=== PATIENT | female | born 1945 | race Caucasian/White ===

== ENCOUNTER 2016-10-28 10:01 | Emergency (ER) | payer MEDICARE, MEDICAID | END 2016-10-28 12:30 | disposition home or self-care (01) | LOC: D.ER 10:01 | DX: S80.212A Abrasion, left knee, initial encounter (principal); W01.0XXA Fall on same level from slipping, tripping and stumbling without subsequent striking against object, initial encounter; Y93.89 Activity, other specified; Y92.015 Private garage of single-family (private) house as the place of occurrence of the external cause; S79.912A Unspecified injury of left hip, initial encounter; S09.90XA Unspecified injury of head, initial encounter ==

== ENCOUNTER 2017-05-17 15:09 | Emergency (ER) | payer MEDICARE, MEDICAID | END 2017-05-17 18:00 | disposition home or self-care (01) | LOC: D.ER 15:09 | DX: M79.675 Pain in left toe(s) (principal) ==

== ENCOUNTER 2017-09-16 09:21 | Inpatient (IN) | payer MEDICARE, MEDICAID ==
[2017-09-16] VITALS (8 sets, daily range): BP systolic 101–124; BP diastolic 49–73
[~2017-09-16] VITALS: Ht 162.6 cm; Wt 87.0 kg
--- NOTE | ~2017-09-16 | CN ---
PATIENT NAME:WANDY HECTOR MEDICAL RECORD: [id number] : 43 LOCATION:[facility] ADMIT DATE: 09/16/17 ACCOUNT: [id number] CONSULTING PHYSICIAN: NONI NINO MD REFERRING PHYSICIAN: HILDA BARRY MD DATE OF CONSULTATION: 09/19/2017 ADMITTING DIAGNOSES: 1. Chest pain. 2. Status post fall, hip fracture. 3. Smoking history. HISTORY OF PRESENT ILLNESS: Mrs. Hector has chest pain, but this is positional and associated with her fall. She had a hip fracture. She has no previous cardiac history. Troponin is normal. EKG is with no changes. PHYSICAL EXAMINATION: GENERAL APPEARANCE: Well-nourished, well-developed, appears stated age. Level of distress, comfortable. PSYCHIATRIC: Mental status, alert, normal affect. Orientation, oriented to time, place and person. EYES: Lids and conjunctiva, noninjected. No discharge, no pallor. ENT: Lips, teeth, gums, normal dentition. Oropharynx, no cyanosis, no pallor. NECK: Carotid arteries, bilateral normal upstroke, no bruits, no thrills. JUGULAR VEINS: No jugular venous pressure or distention. CERVICAL LYMPH NODES: Nontender, nonenlarged. THYROID: Not enlarged. Nontender. No nodules. LUNGS: Respiratory effort, unlabored. CHEST: Normal curvature. No thoracic deformity. No chest wall tenderness. Percussion, resonant. Auscultation, clear. No wheezes, no rales, no rhonchi. CARDIOVASCULAR: Precordial exam, nondisplaced. No heaves or pericardial thrills. Rate and rhythm, regular. Heart sounds, normal S1, normal S2. No S3, no gallop, no rub. Systolic murmur, not heard. Diastolic murmur, not heard. EXTREMITIES: No cyanosis, no edema. Peripheral pulses, full and equal in all extremities, except as noted. No bruits appreciated. ABDOMEN: Soft, nondistended. Normal aorta. No bruit. Nontender. No masses. Liver, nontender, no hepatomegaly. Spleen, nontender, no splenomegaly. MUSCULOSKELETAL: No joint tenderness. No joint swelling. No erythema. NEUROLOGICAL: Normal gait, normal strength, normal tone. SKIN: Warm and dry. OVERALL IMPRESSION: Chest pain is musculoskeletal in nature. At this time, no other cardiac workup or treatment is necessary. 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
--- NOTE | ~2017-09-16 | OP ---
PATIENT NAME: WANDY HECTOR MEDICAL RECORD: [id number] :43 LOCATION:[facility] ADMISSION DATE:09/16/17 SURGEON: HILDA BARRY MD DATE OF OPERATION: 09/16/2017 PREOPERATIVE DIAGNOSIS: Displaced femoral neck fracture. POSTOPERATIVE DIAGNOSIS: Displaced femoral neck fracture. PROCEDURE: Bipolar endoprosthesis for displaced femoral neck fracture. SURGEON: Hilda Barry MD ANESTHESIA: General. INTRAOPERATIVE COMPLICATIONS: None. SUMMARY OF PATHOLOGIC FINDINGS: The patient had displaced femoral neck fracture consistent with preoperative diagnosis. IMPLANTS USED: Anato size 3 [place]issfield stem with a size 46 outside bipolar component, size 26 standard inside component. ESTIMATED BLOOD LOSS: 200 cc. OPERATIVE SUMMARY IN DETAIL: After obtaining the appropriate preoperative orthopedic surgery consent as well as anesthetic consultation, evaluation and clearance, the patient was brought to the operating room and placed on the operating table in supine position. After general laryngeal mask airway was administered, the patient was placed in a left lateral decubitus position. All pressure points were well padded to include down leg peroneal pad as well as axillary roll. At this point, the patient's right lower extremity was prepped and draped in a routine sterile fashion along with the hip. A curvilinear incision was made over the greater trochanter, taken down to the IT band. The IT band was split to reveal the gluteus medius minimus attachment on the greater trochanter. These were reflected anteriorly. Hip capsule was split in a T-type fashion and saved for later reapproximation. Femoral neck cut was made using the femoral neck cutting for the Anato system. The femoral head was then extracted and used for measuring the bipolar. All fragments were evacuated from the acetabulum at this point. Serial and sequential broaching was done for Anato size 3. The Anato size 3 was then put into place. Trials were undertaken corresponding to the above-mentioned sizes. The final bipolar component was snapped and tamped into place on the Combs head, reduced, taken through range of motion. Intraoperative radiographs showed good position and placement of all hardware with good leg-length rastafarian. The wound was copiously irrigated at this multiple points. The hip capsule was closed with #2 Ethibond, followed by #5 transosseous reapproximation of the gluteus medius minimus. IT band was likewise closed with #2 Ethibond followed by #1 Vicryl, 2-0 Vicryl, and skin shira. Sterile dressings were applied. The patient was awakened and taken to recovery room in stable condition. All final needle and sponge counts were correct. TRANSINT:[id number] Voice Confirmation ID: [id number] DOCUMENT ID: [id number] OPERATIVE REPORT [id number] WANDY HECTOR MD, HILDA AUGUSTE at 0827 CC: [id number] DICTATION DATE: 09/18/171821 [employer] NURSERY: 09/18/178 ADM IN [facility] [address] [place] [id number]
[2017-09-16 12:20] LABS: BASOPHILS 0.1 % (0-2); EOSINOPHILS 0.4 % (0-7); HEMATOCRIT 37.4 % (36.0-48.0); HEMOGLOBIN 12.6 g/dL (12-16); IMMATURE GRANULOCYTES 0.6 % (0-5); LYMPHOCYTES 10.8 % (15-50); MCH 29.8 pg (26.0-34.0); MCHC 33.7 g/dL (31.0-37.0); MCV 88.4 fL (80.0-100.0); MEAN PLATELET VOLUME 9.7 fL (7.4-10.4); MONOCYTES 5.8 % (2-11); NEUTROPHILS 82.3 % (40-80); PLATELET COUNT 210 10x3/uL (130-400); RBC 4.23 10x6/uL (4.00-5.40); RDW 13.6 % (11.5-14.5); WBC 13.6 10x3/uL (4.8-10.8)
[2017-09-16 12:32] LABS: APTT 23.1 SECONDS (22.8-39.4); INR 0.9 (0.85-1.17); PROTIME 11.8 SECONDS (11.6-15.0)
[2017-09-16 12:42] LABS: ALBUMIN 3.3 g/dL (3.4-5.0); ALKALINE PHOSPHATASE 49 U/L (46-116); ALT (SGPT) 54 U/L (10-68); BILIRUBIN - TOTAL 0.93 mg/dL (0.2-1.3); CALC OSMOLALITY 277 mosm/kg (275-300); CALCIUM 8.4 mg/dL (8.5-10.1); CHLORIDE - SERUM 108 mmol/L (98-107); CREATININE - SERUM 0.7 mg/dL (0.6-1.3); GLUCOSE 100 mg/dL (74-106); POTASSIUM - SERUM 3.9 mmol/L (3.5-5.1); PROTEIN - SERUM 6.5 g/dL (6.4-8.2); SODIUM 139 mmol/L (136-145); UREA NITROGEN 13 mg/dL (7-18); eGFR NON AFRICAN AMERICAN 87 mL/min (90-120)
[2017-09-17] VITALS (8 sets, daily range): BP systolic 92–111; BP diastolic 37–66; Ht 162.6 cm; Wt 87.0 kg
[2017-09-17] MEDS ORDERED: PRILOSEC10 M1 PO (01:40)
[2017-09-17] MEDS ORDERED: IMITREX20 MG/SPRA NS (01:41)
[2017-09-17] MEDS ORDERED: FLOVENT DI50 MCG/DIS INH (01:43)
[2017-09-17] MEDS ORDERED: PROVENTIL HFA6.7 GM INH (01:44)
[2017-09-17 06:07] LABS: BASOPHILS 0.1 % (0-2); HEMATOCRIT 34.9 % (36.0-48.0); HEMOGLOBIN 11.3 g/dL (12-16); IMMATURE GRANULOCYTES 0.4 % (0-5); LYMPHOCYTES 12.3 % (15-50); MCH 29.1 pg (26.0-34.0); MCHC 32.4 g/dL (31.0-37.0); MCV 89.9 fL (80.0-100.0); MEAN PLATELET VOLUME 10.2 fL (7.4-10.4); MONOCYTES 6.5 % (2-11); NEUTROPHILS 78.7 % (40-80); PLATELET COUNT 215 10x3/uL (130-400); RBC 3.88 10x6/uL (4.00-5.40); RDW 13.9 % (11.5-14.5); WBC 10.4 10x3/uL (4.8-10.8)
[2017-09-17 06:30] LABS: ALBUMIN 2.9 g/dL (3.4-5.0); ALKALINE PHOSPHATASE 44 U/L (46-116); ALT (SGPT) 53 U/L (10-68); CALC OSMOLALITY 273 mosm/kg (275-300); CALCIUM 7.7 mg/dL (8.5-10.1); CARBON DIOXIDE 23.7 mmol/L (21.0-32.0); CHLORIDE - SERUM 105 mmol/L (98-107); CREATININE - SERUM 0.7 mg/dL (0.6-1.3); GLUCOSE 114 mg/dL (74-106); POTASSIUM - SERUM 3.8 mmol/L (3.5-5.1); PROTEIN - SERUM 5.9 g/dL (6.4-8.2); SODIUM 137 mmol/L (136-145); UREA NITROGEN 10 mg/dL (7-18); eGFR NON AFRICAN AMERICAN 87 mL/min (90-120)
[2017-09-18] VITALS: BP 106/53
[2017-09-18 04:00] VITALS: BP 106/57
[2017-09-18 05:39] LABS: BASOPHILS 0 % (0-2); EOSINOPHILS 1.5 % (0-7); HEMOGLOBIN 11.1 g/dL (12-16); IMMATURE GRANULOCYTES 0.2 % (0-5); LYMPHOCYTES 11.6 % (15-50); MCH 29.4 pg (26.0-34.0); MCHC 32.6 g/dL (31.0-37.0); MCV 90.2 fL (80.0-100.0); MEAN PLATELET VOLUME 9.8 fL (7.4-10.4); MONOCYTES 6.3 % (2-11); NEUTROPHILS 80.4 % (40-80); PLATELET COUNT 199 10x3/uL (130-400); RBC 3.77 10x6/uL (4.00-5.40); RDW 13.9 % (11.5-14.5); WBC 8.6 10x3/uL (4.8-10.8)
[2017-09-18 06:10] LABS: ALBUMIN 2.7 g/dL (3.4-5.0); ALKALINE PHOSPHATASE 46 U/L (46-116); ALT (SGPT) 46 U/L (10-68); CALC OSMOLALITY 274 mosm/kg (275-300); CALCIUM 8.3 mg/dL (8.5-10.1); CHLORIDE - SERUM 105 mmol/L (98-107); CREATININE - SERUM 0.6 mg/dL (0.6-1.3); GLUCOSE 124 mg/dL (74-106); POTASSIUM - SERUM 4.2 mmol/L (3.5-5.1); PROTEIN - SERUM 6.2 g/dL (6.4-8.2); SODIUM 138 mmol/L (136-145); UREA NITROGEN 8 mg/dL (7-18); eGFR NON AFRICAN AMERICAN > 90 mL/min (90-120)
[2017-09-18 08:45] VITALS: BP 128/56
[2017-09-18 12:45] VITALS: BP 97/42
[2017-09-18 20:00] VITALS: BP 105/45
[2017-09-18 20:18] LABS: APPEARANCE CLEAR (CLEAR); BILIRUBIN NEGATIVE (NEGATIVE); COLOR YELLOW (YELLOW); GLUCOSE NEGATIVE (NEGATIVE); KETONE NEGATIVE (NEGATIVE); NITRITE NEGATIVE (NEGATIVE); PROTEIN TRACE mg/dL (NEGATIVE); UROBILINOGEN NORMAL (NORMAL)
[2017-09-19] VITALS: BP 104/47
[2017-09-19 04:00] VITALS: BP 114/55
[2017-09-19 04:50] LABS: BASOPHILS 0 % (0-2); HEMATOCRIT 30.2 % (36.0-48.0); HEMOGLOBIN 9.8 g/dL (12-16); IMMATURE GRANULOCYTES 0.3 % (0-5); LYMPHOCYTES 13.6 % (15-50); MCH 29.3 pg (26.0-34.0); MCHC 32.5 g/dL (31.0-37.0); MCV 90.4 fL (80.0-100.0); MEAN PLATELET VOLUME 9.7 fL (7.4-10.4); MONOCYTES 7.6 % (2-11); NEUTROPHILS 75.5 % (40-80); PLATELET COUNT 182 10x3/uL (130-400); RBC 3.34 10x6/uL (4.00-5.40); RDW 13.8 % (11.5-14.5)
[2017-09-19 04:52] LABS: WBC 6.3 10x3/uL (4.8-10.8)
[2017-09-19 05:23] LABS: ALBUMIN 2.5 g/dL (3.4-5.0); ALKALINE PHOSPHATASE 51 U/L (46-116); ALT (SGPT) 40 U/L (10-68); BILIRUBIN - TOTAL 1.07 mg/dL (0.2-1.3); CALC OSMOLALITY 279 mosm/kg (275-300); CALCIUM 8.2 mg/dL (8.5-10.1); CARBON DIOXIDE 28.2 mmol/L (21.0-32.0); CHLORIDE - SERUM 106 mmol/L (98-107); CREATININE - SERUM 0.7 mg/dL (0.6-1.3); GLUCOSE 124 mg/dL (74-106); POTASSIUM - SERUM 3.8 mmol/L (3.5-5.1); PROTEIN - SERUM 5.4 g/dL (6.4-8.2); SODIUM 141 mmol/L (136-145); UREA NITROGEN 6 mg/dL (7-18); eGFR NON AFRICAN AMERICAN 87 mL/min (90-120)
[2017-09-19 08:45] VITALS: BP 103/51
[2017-09-19 12:08] VITALS: BP 130/45
[2017-09-19 14:36] LABS: CREATINE KINASE 254 UL (21-215)
[2017-09-19 14:43] LABS: TROPONIN-I < 0.017 ng/mL (0.000-0.060)
[2017-09-19 16:17] VITALS: BP 124/49
[2017-09-19 19:43] LABS: CKMB 0.9 U/L (0.0-3.6); CREATINE KINASE 242 UL (21-215)
[2017-09-19 19:44] LABS: TROPONIN-I < 0.017 ng/mL (0.000-0.060)
[2017-09-19 20:00] VITALS: BP 104/42
[2017-09-20] VITALS: BP 96/47
[2017-09-20 01:42] LABS: ALBUMIN 2.4 g/dL (3.4-5.0); ALKALINE PHOSPHATASE 61 U/L (46-116); ALT (SGPT) 42 U/L (10-68); BILIRUBIN - TOTAL 0.92 mg/dL (0.2-1.3); CALC OSMOLALITY 280 mosm/kg (275-300); CALCIUM 8.6 mg/dL (8.5-10.1); CARBON DIOXIDE 27.8 mmol/L (21.0-32.0); CHLORIDE - SERUM 106 mmol/L (98-107); CREATININE - SERUM 0.8 mg/dL (0.6-1.3); GLUCOSE 129 mg/dL (74-106); POTASSIUM - SERUM 3.8 mmol/L (3.5-5.1); PROTEIN - SERUM 5.9 g/dL (6.4-8.2); SODIUM 141 mmol/L (136-145); UREA NITROGEN 6 mg/dL (7-18); eGFR NON AFRICAN AMERICAN 75 mL/min (90-120)
[2017-09-20 01:50] LABS: BASOPHILS 0.2 % (0-2); EOSINOPHILS 4.3 % (0-7); HEMOGLOBIN 9.6 g/dL (12-16); IMMATURE GRANULOCYTES 0.6 % (0-5); LYMPHOCYTES 18.6 % (15-50); MCH 29.1 pg (26.0-34.0); MCV 90.9 fL (80.0-100.0); MEAN PLATELET VOLUME 9.8 fL (7.4-10.4); MONOCYTES 8.1 % (2-11); NEUTROPHILS 68.2 % (40-80); PLATELET COUNT 206 10x3/uL (130-400); RDW 13.8 % (11.5-14.5); WBC 5.3 10x3/uL (4.8-10.8)
[2017-09-20 02:14] LABS: CKMB 0.8 U/L (0.0-3.6); CREATINE KINASE 201 UL (21-215); TROPONIN-I < 0.017 ng/mL (0.000-0.060)
[2017-09-20 04:00] VITALS: BP 98/59
[2017-09-20 08:43] VITALS: BP 118/61
[2017-09-20 12:46] VITALS: BP 120/49
[2017-09-20 16:26] VITALS: BP 106/52
[2017-09-20 23:02] VITALS: BP 115/58
[2017-09-21 02:45] VITALS: BP 99/52
[2017-09-21 04:32] VITALS: BP 119/51
[2017-09-21 04:54] LABS: BASOPHILS 0.1 % (0-2); EOSINOPHILS 1.7 % (0-7); HEMATOCRIT 29.6 % (36.0-48.0); HEMOGLOBIN 9.7 g/dL (12-16); IMMATURE GRANULOCYTES 0.9 % (0-5); LYMPHOCYTES 10.6 % (15-50); MCH 29.2 pg (26.0-34.0); MCHC 32.8 g/dL (31.0-37.0); MCV 89.2 fL (80.0-100.0); MEAN PLATELET VOLUME 9.6 fL (7.4-10.4); MONOCYTES 6.7 % (2-11); PLATELET COUNT 226 10x3/uL (130-400); RBC 3.32 10x6/uL (4.00-5.40); RDW 13.8 % (11.5-14.5)
[2017-09-21 04:55] LABS: WBC 6.9 10x3/uL (4.8-10.8)
[2017-09-21 05:13] LABS: ALBUMIN 2.5 g/dL (3.4-5.0); ALKALINE PHOSPHATASE 60 U/L (46-116); ALT (SGPT) 44 U/L (10-68); BILIRUBIN - TOTAL 1.59 mg/dL (0.2-1.3); CALC OSMOLALITY 275 mosm/kg (275-300); CALCIUM 9.2 mg/dL (8.5-10.1); CARBON DIOXIDE 26.6 mmol/L (21.0-32.0); CHLORIDE - SERUM 103 mmol/L (98-107); CREATININE - SERUM 0.7 mg/dL (0.6-1.3); GLUCOSE 132 mg/dL (74-106); POTASSIUM - SERUM 4.1 mmol/L (3.5-5.1); PROTEIN - SERUM 6.4 g/dL (6.4-8.2); SODIUM 138 mmol/L (136-145); eGFR NON AFRICAN AMERICAN 87 mL/min (90-120)
[2017-09-21 05:15] LABS: UREA NITROGEN 8 mg/dL (7-18)
[2017-09-21 10:51] VITALS: BP 125/55
[2017-09-21 15:10] VITALS: BP 116/49
[2017-09-22 01:21] VITALS: BP 109/60
[2017-09-22 05:44] VITALS: BP 135/59
[2017-09-22 06:50] LABS: BASOPHILS 0.2 % (0-2); EOSINOPHILS 5.4 % (0-7); HEMATOCRIT 29.5 % (36.0-48.0); HEMOGLOBIN 9.7 g/dL (12-16); IMMATURE GRANULOCYTES 2.2 % (0-5); LYMPHOCYTES 20.4 % (15-50); MCH 29.2 pg (26.0-34.0); MCHC 32.9 g/dL (31.0-37.0); MCV 88.9 fL (80.0-100.0); MEAN PLATELET VOLUME 9.9 fL (7.4-10.4); MONOCYTES 6.5 % (2-11); NEUTROPHILS 65.3 % (40-80); RBC 3.32 10x6/uL (4.00-5.40); RDW 14.2 % (11.5-14.5); WBC 5.9 10x3/uL (4.8-10.8)
[2017-09-22 06:51] LABS: PLATELET COUNT 105 10x3/uL (130-400)
[2017-09-22 07:04] LABS: ALBUMIN 2.4 g/dL (3.4-5.0); ALKALINE PHOSPHATASE 56 U/L (46-116); ALT (SGPT) 36 U/L (10-68); BILIRUBIN - TOTAL 1.33 mg/dL (0.2-1.3); CALC OSMOLALITY 274 mosm/kg (275-300); CALCIUM 8.6 mg/dL (8.5-10.1); CARBON DIOXIDE 23.2 mmol/L (21.0-32.0); CHLORIDE - SERUM 104 mmol/L (98-107); CREATININE - SERUM 0.7 mg/dL (0.6-1.3); GLUCOSE 121 mg/dL (74-106); POTASSIUM - SERUM 3.8 mmol/L (3.5-5.1); PROTEIN - SERUM 5.8 g/dL (6.4-8.2); SODIUM 137 mmol/L (136-145); eGFR NON AFRICAN AMERICAN 87 mL/min (90-120)
[2017-09-22 07:05] LABS: UREA NITROGEN 13 mg/dL (7-18)
[2017-09-22 09:00] VITALS: BP 124/56
[2017-09-22 13:13] VITALS: BP 114/44
[2017-09-22 16:58] VITALS: BP 100/46
[2017-09-22 23:07] VITALS: BP 128/66
[2017-09-23 05:06] VITALS: BP 111/63
[2017-09-23 05:14] LABS: BASOPHILS 0.2 % (0-2); EOSINOPHILS 5.9 % (0-7); HEMATOCRIT 29.9 % (36.0-48.0); HEMOGLOBIN 9.5 g/dL (12-16); IMMATURE GRANULOCYTES 2.7 % (0-5); LYMPHOCYTES 15.9 % (15-50); MCHC 31.8 g/dL (31.0-37.0); MEAN PLATELET VOLUME 9.6 fL (7.4-10.4); MONOCYTES 7.5 % (2-11); NEUTROPHILS 67.8 % (40-80); RBC 3.28 10x6/uL (4.00-5.40); RDW 14.2 % (11.5-14.5)
[2017-09-23 05:27] LABS: MCV 91.2 fL (80.0-100.0); PLATELET COUNT 265 10x3/uL (130-400); WBC 8.4 10x3/uL (4.8-10.8)
[2017-09-23 05:47] LABS: ALBUMIN 2.4 g/dL (3.4-5.0); ANION GAP 14.2 mmol/L (8-16); BILIRUBIN - TOTAL 1.18 mg/dL (0.2-1.3); CALCIUM 8.6 mg/dL (8.5-10.1); CARBON DIOXIDE 24.3 mmol/L (21.0-32.0); CREATININE - SERUM 0.8 mg/dL (0.6-1.3); POTASSIUM - SERUM 3.5 mmol/L (3.5-5.1)
[2017-09-23] MEDS ORDERED: ELIQUIS2.5 MG PO (06:33)
[2017-09-23] MEDS ORDERED: MIRALAX17 GM PO (06:34)
[2017-09-23] MEDS ORDERED: COLACE100 MG PO (06:34)
[2017-09-23] MEDS ORDERED: DILAUDID2 MG PO (06:36)
[2017-09-23] MEDS ORDERED: XANAX0.25 MG PO (06:36)
[2017-09-23 08:18] VITALS: BP 102/44
[2017-09-23 13:20] VITALS: BP 108/61
== END 2017-09-23 16:40 | DRG 469 ==
LOC: D.ER 09:21 → D.MS 11:47 → D.EDHOLD 11:47 → D.MS 19:38
PROVIDERS: Family Medicine; Orthopaedic Surgery; Physician Assistant
PROC: 0SRR0JZ Replacement of Right Hip Joint, Femoral Surface with Synthetic Substitute, Open Approach (ICD-10-PCS; principal; 2017-09-16 16:15)
PROC: 0T9B70Z Drainage of Bladder with Drainage Device, Via Natural or Artificial Opening (ICD-10-PCS; 2017-09-17)
DX: S72.001A Fracture of unspecified part of neck of right femur, initial encounter for closed fracture (principal); J18.9 Pneumonia, unspecified organism; D62 Acute posthemorrhagic anemia; W01.0XXA Fall on same level from slipping, tripping and stumbling without subsequent striking against object, initial encounter; R33.9 Retention of urine, unspecified; Y95 Nosocomial condition; K59.00 Constipation, unspecified; B00.1 Herpesviral vesicular dermatitis

== ENCOUNTER 2018-01-20 08:00 | Outpatient (CLI) | payer MEDICARE, MEDICAID ==
[2017-09-17 00:59] VITALS: BMI 30.1
[~2018-01-20 08:00] MED LIST: COLACE100 MG PO; DILAUDID2 MG PO; ELIQUIS2.5 MG PO; FLOVENT DI50 MCG/DIS INH; IMITREX20 MG/SPRA NS; MIRALAX17 GM PO; PRILOSEC10 M1 PO; PROVENTIL HFA6.7 GM INH; XANAX0.25 MG PO
== END 2018-01-20 11:08 | disposition home or self-care (01) ==
LOC: D.MAMMO 08:00
DX: Z12.31 Encounter for screening mammogram for malignant neoplasm of breast (principal)

== ENCOUNTER → 2018-03-26 16:25 | Outpatient (CLI) | payer MEDICARE, MEDICAID ==
[2017-09-17 00:59] VITALS: BMI 30.1
== END | disposition home or self-care (01) ==
LOC: D.MRI 16:25
DX: M25.572 Pain in left ankle and joints of left foot (principal)

== ENCOUNTER → 2018-07-24 06:15 | Day surgery (SDC) | payer MEDICARE, MEDICAID ==
[2018-07-23 15:33] LABS: HEMATOCRIT 39.9 % (36.0-48.0); HEMOGLOBIN 13.4 g/dL (12-16); MCHC 33.6 g/dL (31.0-37.0); MCV 86.4 fL (80.0-100.0); MEAN PLATELET VOLUME 10.3 fL (7.4-10.4); RBC 4.62 10x6/uL (4.00-5.40); RDW 13.2 % (11.5-14.5); WBC 23.1 10x3/uL (4.8-10.8)
[~2018-07-24] VITALS: Ht 165.1 cm; Wt 78.5 kg
[~2018-07-24 06:15] MED LIST changes: +ATIVAN0.5 MG PO; +DEMEROL100 MG PO; +MELATONIN10 M1 PO; +SUMATRIPTAN SUC25 MG PO
--- NOTE | 2018-07-24 08:58 | NUR ---
DR BARRY ADVISED BY PHONE OF PATIENT'S PREOP WBC VALUE OF 23.1 AND PATIENT'S GIVEN HISTORY OF LUMBAR EPIDURAL STEROID INJECTION 07/20/18. NO NEW ORDERS RECEIVED
[2018-07-24 09:07] VITALS: BP 115/56; Ht 165.1 cm; Wt 78.5 kg
--- NOTE | 2018-07-28 08:29 | OP ---
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 PROCEDURE: Nicole's resection. SURGEON: Hilda Barry MD ANESTHESIA: General. INTRAOPERATIVE COMPLICATIONS: None. SUMMARY OF PATHOLOGIC FINDINGS: The patient had very large enthesophyte emanating up the back of the heel just anterior to the Achilles tendon with a large area of inflammatory bursa between the two. OPERATIVE SUMMARY IN DETAIL: After obtaining the appropriate preoperative orthopedic surgery consent as well as anesthetic consultation, evaluation and clearance, the patient was brought to the operating room and anesthetized on the hospital bed and then placed on the operating table in prone position. All pressure points were well-padded. The tourniquet was placed about the proximal aspect of left lower extremity. Left lower extremity was then prepped and draped in routine sterile fashion. The leg was elevated and exsanguinated, tourniquet was inflated to 350 mmHg. Routine midline incision was taken down to the level of the Achilles tendon. The remaining attachment was then taken down to expose the insertion of the Achilles tendon as well as a large Nicole deformity. A small sagittal saw was then used to excise the entire retrocalcaneal bone spur. The area was then copiously irrigated. At this point, the SpeedBridge 4 Nicole deformity by Arthrex was then deployed proximally and distally with crisscross fashion. This resulted in excellent reapproximation of the Achilles tendon back to its insertional point. Wound was copiously irrigated. Paratenon was closed with 2-0 Vicryl. This was followed by 2-0 Vicryl and a 4-0 Prolene for final closure. Sterile dressings were applied. Tourniquet was deflated and then a posterior L&U splint was applied. The patient was awakened, extubated, and taken to the recovery room in stable condition. All final needle and sponge counts were correct. 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
== END | disposition home or self-care (01) ==
LOC: D.OPS 06-19 12:45 → D.PAN 06-19 12:45 → D.OPS 06:15 → D.PAN 07:30
PROVIDERS: Anesthesiology
DX: M92.62 Juvenile osteochondrosis of tarsus, left ankle (principal); Z01.812 Encounter for preprocedural laboratory examination

== ENCOUNTER → 2018-11-28 07:57 | Outpatient (CLI) | payer MEDICARE, MEDICAID ==
[2018-07-24 09:07] VITALS: BMI 28.8
== END | disposition home or self-care (01) ==
LOC: D.MRI 07:57
PROVIDERS: ATTEND Orthopaedic Surgery
DX: M89.8X7 Other specified disorders of bone, ankle and foot (principal)

== ENCOUNTER → 2018-12-11 14:10 | Outpatient (CLI) | payer MEDICARE, MEDICAID | END | disposition home or self-care (01) | LOC: D.MRI 14:10 | DX: S83.232A Complex tear of medial meniscus, current injury, left knee, initial encounter (principal) ==

== ENCOUNTER → 2018-12-15 12:57 | Outpatient (CLI) | payer MEDICARE, MEDICAID ==
[2018-07-24 09:07] VITALS: BMI 28.8
== END | disposition home or self-care (01) ==
LOC: D.MRI 12:57
PROVIDERS: ATTEND Orthopaedic Surgery
DX: S83.232A Complex tear of medial meniscus, current injury, left knee, initial encounter (principal)

== ENCOUNTER → 2019-01-05 11:05 | Outpatient (CLI) | payer MEDICARE, MEDICAID ==
[2018-07-24 09:07] VITALS: BMI 28.8
== END | disposition home or self-care (01) ==
LOC: D.MRI 01-02 10:00
PROVIDERS: ATTEND Orthopaedic Surgery
DX: S83.232A Complex tear of medial meniscus, current injury, left knee, initial encounter (principal); S83.231A Complex tear of medial meniscus, current injury, right knee, initial encounter

== ENCOUNTER → 2019-06-15 13:52 | Outpatient (CLI) | payer MEDICARE ==
[2018-07-24 09:07] VITALS: BMI 28.8
== END | disposition home or self-care (01) ==
LOC: D.MRI 13:52
PROVIDERS: ATTEND Orthopaedic Surgery
DX: M76.62 Achilles tendinitis, left leg (principal)

== ENCOUNTER 2019-09-15 14:29 | Emergency (ER) | payer MEDICARE, OTHER ==
[~2019-09-15] VITALS: Ht 165.1 cm; Wt 78.6 kg
[2019-09-15 14:35] VITALS: Ht 165.1 cm; Wt 78.6 kg
[2019-09-15 17:22] VITALS: BP 124/68
== END 2019-09-15 17:23 | disposition home or self-care (01) ==
LOC: D.ER 14:29
DX: S51.011A Laceration without foreign body of right elbow, initial encounter (principal); S00.93XA Contusion of unspecified part of head, initial encounter; W01.198A Fall on same level from slipping, tripping and stumbling with subsequent striking against other object, initial encounter; Y93.9 Activity, unspecified; Y92.9 Unspecified place or not applicable

== ENCOUNTER → 2020-01-22 07:41 | Outpatient (CLI) | payer MEDICARE, OTHER ==
[2019-09-15 14:35] VITALS: BMI 28.8
== END | disposition home or self-care (01) ==
LOC: D.MRI 07:41
PROVIDERS: ATTEND Psychiatry & Neurology Neurology
DX: G43.009 Migraine without aura, not intractable, without status migrainosus (principal)

== ENCOUNTER → 2020-04-28 23:13 | Outpatient (CLI) | payer MEDICARE, OTHER ==
[2019-09-15 14:35] VITALS: BMI 28.8
== END | disposition home or self-care (01) ==
LOC: D.MAMMO 14:45
PROVIDERS: ATTEND Family Medicine
DX: Z12.31 Encounter for screening mammogram for malignant neoplasm of breast (principal)